=== PATIENT | female | born 1955 | race Caucasian/White ===

== ENCOUNTER → 2016-06-13 | Day surgery (SDC) | payer BC ==
--- NOTE | 2016-06-14 09:04 | MM ---
EXAMINATION TYPE: MG discontinued stereo core RT DATE OF EXAM: 06/13/2016 9:02 AM COMPARISON: 03/29/2016 as well as 04/13/2016 CLINICAL HISTORY: Abnormal mammogram TECHNIQUE: Stereotactic guided core biopsy of right breast. FINDINGS: The procedure of stereotactic guided core biopsy was explained to the patient. Benefits, a lternatives, and risks were discussed. An informed consent was then obtained. Multiple attempts were made at localizing the density in question within the right breast which prove d unsuccessful. Repeat 3-D mammogram of the right breast was obtained and the density in question tam ears to be less conspicuous. This was discussed with the patient and Dr. Richardson. Options include six-m onth follow-up or MRI of the bilateral breast with attention to the right breast. IMPRESSION: Discontinued stereotactic core biopsy right breast Recommendation: Recommendation is for MRI of the breasts with attention to the right breast. Jose lopez 6 month follow-up could also be obtained.
== END ==
LOC: RADMAMWWP 07:02
PROVIDERS: ATTEND Surgery
DX: R92.8 Other abnormal and inconclusive findings on diagnostic imaging of breast (principal); Z53.8 Procedure and treatment not carried out for other reasons

== ENCOUNTER → 2016-07-16 | Outpatient (CLI) | payer BC ==
[2016-07-16 17:59] LABS: Non-African American GFR(MDRD) >60 (>60 ml/min/1.73 sqM)
--- NOTE | 2016-07-19 14:59 | BMR ---
EXAMINATION TYPE: MR breast BILAT wo/w con DATE OF EXAM: 07/16/2016 9:23 PM COMPARISON: Prior mammogram dated 29 March 2016, 14 May 2014 HISTORY: Abnormal mammogram TECHNIQUE: A series of fat and water weighted images in the long and short axis views of both breasts are obtained in conjunction with dynamic contrast MRI with subtraction technique. The patient was i njected with 13 mL intravenous MultiHance gadolinium contrast. Three-dimensional and additional pos tprocessing imaging is created on independent workstation and reviewed during official interpretation of this study. FINDINGS: Scattered fibroglandular tissue is present within the bilateral breasts. There is no suspic ious mass like enhancement. No evident adenopathy. IMPRESSION: Left and right breast BI-RADS 1, negative, routine follow-up mammography back on schedule.
== END | disposition home or self-care (01) ==
LOC: RADMRIMAIN 17:20
PROVIDERS: ATTEND Surgery
DX: R92.8 Other abnormal and inconclusive findings on diagnostic imaging of breast (principal)
CPT/HCPCS: 82565; 77059; 0159T; A9577

== ENCOUNTER 2016-08-21 17:49 | Emergency (ER) | payer BC, OTHER ==
[2016-08-21] MEDS ORDERED: DIPH,PERTUS(ACELL)TETVAC-LF 0.5 ML VIAL IM ONE (18:08)
--- NOTE | 2016-08-21 18:13 | ED ---
Animal Bite HPI - General Stated Complaint: dog bite right hand-[facility] Time Seen by Provider: 08/21/16 18:05 Source: patient, RN notes reviewed Mode of arrival: ambulatory Limitations: no limitations - History of Present Illness Initial Comments: 61-year-old female presents emergency Department chief complaint dog bite to right hand. 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 Patient states dog is up-to- date vaccinations. Patient states she is unsure when her last tetanus was. Patient is right-hand dominant. Patient complains of laceration 2 cm in length to her right hand dorsal aspect. Patient denies any paresthesias denies any decreased range of motion. Patient offers no other complaints. - Related Data Previous Rx's Medication Instructions Recorded Amoxicillin/Potassium Clav 1 tab PO Q12HR #20 tab 08/21/16 [Augmentin 875-125 Tablet] Allergies Allergy/AdvReac Type Severity Reaction Status Date / Time No Known Allergies Allergy Verified 04/13/16 08:49 Review of Systems ROS Statement: Those systems with pertinent positive or pertinent negative responses have been documented in the HPI. ROS Other: All systems not noted in ROS Statement are negative. General Exam General appearance: alert, in no apparent distress Respiratory exam: Present: normal lung sounds bilaterally. Absent: respiratory distress, wheezes, rales, rhonchi, stridor Cardiovascular Exam: Present: regular rate, normal rhythm, normal heart sounds. Absent: systolic murmur, diastolic murmur, rubs, gallop, clicks Extremities exam: Present: other (Right hand there is a 2 cm laceration between the first and second digit on the dorsal aspect. There is no deep structure involvement patient has full strength and full range of motion of all digits neurovascular intact) Procedures - Laceration Laceration #1 Consent Obtained: verbal consent Indication: laceration Site: hand (Right) Size (cm): 2 Description: flap, irregular Depth: simple, single layer Anesthetic Used: lidocaine 1% Anesthesia Technique: local infiltration Amount (mls): 4 Pre-repair: wound explored, irrigated extensively, deep structures intact Type of Sutures: nylon Size of Sutures: 4-0 Number of Sutures: 5 Technique: simple, interrupted Patient Tolerated Procedure: well, no complications Disposition Clinical Impression: Dog bite Disposition: HOME SELF-CARE Condition: Stable Instructions: Animal Bite (ED) Additional Instructions: Please return to the Emergency Department if symptoms worsen or any other concerns. Wash the wound twice stated with soap and water. Have sutures removed in 10 days. Return to emergency department for any signs of infection which may include redness, swelling, drainage, fever, chills or any other concerns. Prescriptions: Amoxicillin/Potassium Clav [Augmentin 875-125 Tablet] 1 tab PO Q12HR #20 tab Referrals: Ian Bhat MD [Primary Care Provider] - 1-2 days Time of Disposition: 18:32
[2016-08-21 18:36] VITALS: RESP 18; TEMP 98
[2016-08-21 18:53] VITALS: BP 162/80; PULSE 80
== END 2016-08-21 18:49 | disposition home or self-care (01) ==
LOC: EC 17:49
DX: S61.451A Open bite of right hand, initial encounter (principal); Z23 Encounter for immunization; W54.0XXA Bitten by dog, initial encounter
CPT/HCPCS: 12001; 90471; 90715; 96360; 99283; 99284

== ENCOUNTER → 2016-12-12 | Outpatient (CLI) | payer BC ==
--- NOTE | 2016-12-12 10:59 | MM ---
Reason for exam: follow-up at short interval from prior study. Last mammogram was performed 8 months ago. History: Patient is postmenopausal. MG discontinued stereo core RT of the right breast, June 13, 2016. Took estrogen for 10 years beginning at age 39. Took progesterone for 10 years beginning at age 39. Physical Findings: Nurse did not find any significant physical abnormalities on exam. MG 3D Diag Mammo W/Cad RT CC and MLO view(s) were taken of the right breast. Prior study comparison: April 13, 2016, right breast MG work up mamm w CAD RT. March 29, 2016, bilateral MG screening mammo w CAD. There are scattered fibroglandular densities. There is no discrete abnormality including area of concern. No significant new findings when compared with previous films. These results were verbally communicated with the patient and result sheet given to the patient on 12/12/16. ASSESSMENT: Benign, BI-RAD 2 RECOMMENDATION: Follow-up diagnostic mammogram of both breasts in 6 months. Back on schedule.
== END | disposition home or self-care (01) ==
LOC: RADMAMWWP 09:39
PROVIDERS: ATTEND Surgery
DX: R92.8 Other abnormal and inconclusive findings on diagnostic imaging of breast (principal)
CPT/HCPCS: G0206; G0279

== ENCOUNTER → 2017-02-05 | Day surgery (SDC) | payer BC ==
[2017-01-31 16:02] VITALS: BMI 20.8
[~2017-02-05] MED LIST: SODIUM CHLORIDE 0.9% 1,000 ML IV SCH
[2017-02-05 08:51] VITALS: PULSE 60; RESP 18; TEMP 98.2
[2017-02-05 10:13] VITALS: BP 155/62
--- NOTE | 2017-02-05 14:00 | P.PCN ---
Preoperative Diagnosis: Twelve-lead ECG report Sinus mechanism heart rates 57 beats minute normal RI narrow QRS normal ST segments left axis deviation Tilt table test report Baseline blood pressure 125/63 mmHg Baseline heart rate 59 beats a minute patient was tilted upright at an angle of 70 per protocol there was an immediate drop in blood pressure 105/67 mmHg with an 80 stabilized and remained between 110-120 mmHgchange in heart rate no evidence for neurocardiogenic syncope Impression Mild orthostatic hypotension. Symptoms Anesthesia: none
== END ==
LOC: CATHEP 08:29
PROVIDERS: ATTEND Internal Medicine Clinical Cardiac Electrophysiology
DX: I95.1 Orthostatic hypotension (principal); R00.1 Bradycardia, unspecified; Z79.1 Long term (current) use of non-steroidal anti-inflammatories (NSAID); Z79.899 Other long term (current) drug therapy
CPT/HCPCS: 93005; 93660

== ENCOUNTER → 2017-09-12 | Outpatient (CLI) | payer BC ==
--- NOTE | 2017-09-13 07:17 | BD ---
EXAMINATION TYPE: MG DEXA axial skeleton. DATE OF EXAM: 09/12/2017 COMPARISON: NONE CLINICAL HISTORY: Height: 5 FT 5 1/2 IN Weight: 134 FRAX RISK QUESTIONS: Alcohol (3 or more units per day): NO Family History (Parent hip fracture): NO Glucocorticoids (More than 3mos): NO (Ex: prednisone, prednisolone, methylprednisolone, dexamethasone, and hydrocortisone). History of Fracture in Adulthood: NO Secondary Osteoporosis: 1. Type 1 Diabetes: NO 2. Hyperthyroidism: NO 3. Menopause before 45: YES 4. Malnutrition: NO 5. Chronic liver disease: NO Rheumatoid Arthritis: NO Current Tobacco Use: NO RISK FACTORS HISTORY OF: Surgery to Spine/Hip(right/left)/Wrist (right/left): LT HIP REPLACED When: 2017 Family History of Osteoporosis: YES Active: YES Postmenopausal woman: AGE 39 Take estrogen and/or progesterone medications: TOOK PREMPRO 40-50 How lon YEARS MEDICATIONS: Additional Medications: RESTASIS, Additional History: EXAM MEASUREMENTS: Bone mineral densitometry was performed using the [employer] System. Bone mineral density as measured about the Lumbar spine is: ----- L1-L4(G/cm2): 0.987 T Score Values are as follows: ----- L2: -2.2 ----- L3: -1.5 ----- L4: -1.9 ----- L1-L4: -1.6 BASELINE Bone mineral density about the R hip (g/cm2): 0.847 T Score values are as follows: -----R Neck: -1.4 -----R Total: -1.2 BASELINE IMPRESSION: Osteopenia (T Score between -2.5 and -1). There is slightly increased risk of fracture and the patient may be considered for treatment. Re-Screen 2-5 years. NOTE: T-SCORE=SD OF THE YOUNG ADULT MEAN.
--- NOTE | 2017-09-13 08:01 | MM ---
Reason for exam: additional evaluation requested from prior study. Last mammogram was performed 9 months ago. History: Patient is postmenopausal. MG discontinued stereo core RT of the right breast, June 13, 2016. Took estrogen for 10 years beginning at age 39. Took progesterone for 10 years beginning at age 39. Physical Findings: Nurse did not find any significant physical abnormalities on exam. MG 3D Diag Mammo W/Cad DAYSI Bilateral CC and MLO view(s) were taken. Prior study comparison: December 12, 2016, right breast MG 3d diag mammo w/cad RT. April 13, 2016, right breast MG work up mamm w CAD RT. The breast tissue is heterogeneously dense. This may lower the sensitivity of mammography. There is a stable left upper outer quadrant 3mm mass with calcifications, stable from prior exams. No suspicious abnormality. These results were verbally communicated with the patient and result sheet given to the patient on 09/12/17. ASSESSMENT: Benign, BI-RAD 2 RECOMMENDATION: Routine screening mammogram of both breasts in 1 year.
== END | disposition home or self-care (01) ==
LOC: RADMAMWWP 14:47
PROVIDERS: ATTEND Obstetrics & Gynecology
DX: R92.8 Other abnormal and inconclusive findings on diagnostic imaging of breast (principal); Z78.0 Asymptomatic menopausal state
CPT/HCPCS: 77080; 77066; G0279

== ENCOUNTER → 2018-09-15 | Outpatient (CLI) | payer BC ==
--- NOTE | 2018-09-16 13:32 | MM ---
Reason for exam: screening (asymptomatic). Last mammogram was performed 1 year ago. History: Patient is postmenopausal. MG discontinued stereo core RT of the right breast, June 13, 2016. Took estrogen for 10 years beginning at age 39. Took progesterone for 10 years beginning at age 39. Physical Findings: A clinical breast exam by your physician is recommended on an annual basis and results should be correlated with mammographic findings. MG 3D Screening Mammo W/Cad Bilateral CC and MLO view(s) were taken. Prior study comparison: September 12, 2017, bilateral MG 3d diag mammo w/cad DAYSI. December 12, 2016, right breast MG 3d diag mammo w/cad RT. There are scattered fibroglandular densities. There are similar appearing typically benign bilateral calcifications. No suspicious abnormality. No significant changes when compared with prior studies. ASSESSMENT: Benign, BI-RAD 2 RECOMMENDATION: Routine screening mammogram of both breasts in 1 year.
== END ==
LOC: RADMAMWWP 13:24
PROVIDERS: ATTEND Obstetrics & Gynecology
DX: Z12.31 Encounter for screening mammogram for malignant neoplasm of breast (principal)
CPT/HCPCS: 77063; 77067

== ENCOUNTER → 2020-04-01 | Outpatient (CLI) | payer MEDICARE ==
--- NOTE | 2020-04-04 09:33 | MM ---
Reason for exam: screening (asymptomatic). Last mammogram was performed 1 year and 6 months ago. History: Patient is postmenopausal. MG discontinued stereo core RT of the right breast, June 13, 2016. Took estrogen for 10 years beginning at age 39. Took progesterone for 10 years beginning at age 39. Physical Findings: A clinical breast exam by your physician is recommended on an annual basis and results should be correlated with mammographic findings. MG 3D Screening Mammo W/Cad Bilateral CC and MLO view(s) were taken. Prior study comparison: September 15, 2018, bilateral MG 3d screening mammo w/cad. September 12, 2017, bilateral MG 3d diag mammo w/cad DAYSI. There are scattered fibroglandular densities. Benign appearing bilateral calcifications. No significant changes when compared with prior studies. ASSESSMENT: Benign, BI-RAD 2 RECOMMENDATION: Routine screening mammogram of both breasts in 1 year.
== END | disposition home or self-care (01) ==
LOC: RADMAMWWP 08:15
PROVIDERS: ATTEND Internal Medicine
DX: Z12.31 Encounter for screening mammogram for malignant neoplasm of breast (principal)
CPT/HCPCS: 77063; 77067

== ENCOUNTER → 2021-04-10 | Outpatient (CLI) | payer MEDICARE ==
--- NOTE | 2021-04-11 12:43 | MM ---
Reason for exam: screening (asymptomatic). Last mammogram was performed 1 year ago. History: Patient is postmenopausal. MG discontinued stereo core RT of the right breast, June 13, 2016. Took estrogen for 10 years beginning at age 39. Took progesterone for 10 years beginning at age 39. Physical Findings: A clinical breast exam by your physician is recommended on an annual basis and results should be correlated with mammographic findings. MG 3D Screening Mammo W/Cad Bilateral CC and MLO view(s) were taken. Prior study comparison: April 01, 2020, bilateral MG 3d screening mammo w/cad. September 15, 2018, bilateral MG 3d screening mammo w/cad. The breast tissue is heterogeneously dense. This may lower the sensitivity of mammography. There is no discrete abnormality. No significant changes when compared with prior studies. ASSESSMENT: Negative, BI-RAD 1 RECOMMENDATION: Routine screening mammogram of both breasts in 1 year.
== END | disposition home or self-care (01) ==
LOC: RADMAMWWP 14:44
PROVIDERS: ATTEND Internal Medicine
DX: Z12.31 Encounter for screening mammogram for malignant neoplasm of breast (principal); Z78.0 Asymptomatic menopausal state
CPT/HCPCS: 77063; 77067

== ENCOUNTER 2021-06-25 00:53 | Emergency (ER) | payer MEDICARE ==
[2021-06-25 01:08] VITALS: BP 121/57; PULSE 61; RESP 16; TEMP 97.7
[2021-06-25] MEDS ORDERED: DIPH,PERTUS(ACELL)TETVAC-LF 0.5 ML VIAL IM ONE (01:18)
[2021-06-25] MEDS ORDERED: IBUPROFEN 600 MG TAB PO STA (01:18)
[2021-06-25] MEDS ORDERED: TOPICAL SKIN ADHESIVE 1 EACH AMP TOPICAL ONE (01:18)
--- NOTE | 2021-06-25 01:23 | ED ---
General Adult HPI - General Chief complaint: Fall Stated complaint: Fall, chin lac Time Seen by Provider: 06/25/21 01:08 Source: patient Mode of arrival: ambulatory - History of Present Illness Initial comments: 65 year-old female patient presents to the emergency department for evaluation of chin laceration. Patient states she tripped over a towel on the floor and fell hitting her chin on a china hutch. Denies losing consciousness. Denies any neck pain. Denies any pain or limitation in movement of the jaw. Denies use of blood thinners. Denies any other medications. Patient denies any headache, back pain, chest pain, shortness of breath, dizziness, weakness, abdominal pain, nausea, vomiting, or difficulties with bowel movements or urination. - Related Data Home Medications Medication Instructions Recorded Confirmed Glucosam/Michael-Msm1/C/Remi/Bosw 1 each PO DAILY 01/31/17 02/05/17 [Glucosamine-Chondroitin Tablet] cycloSPORINE [Restasis] 1 applicator BOTH EYES BID 01/31/17 02/05/17 Allergies Allergy/AdvReac Type Severity Reaction Status Date / Time No Known Allergies Allergy Verified 06/25/21 01:08 Review of Systems ROS Statement: Those systems with pertinent positive or pertinent negative responses have been documented in the HPI. ROS Other: All systems not noted in ROS Statement are negative. Past Medical History Past Medical History: Osteoarthritis (OA) Additional Past Medical History / Comment(s): see DR Kathleen H & P History of Any Multi-Drug Resistant Organisms: None Reported Past Surgical History: Cardiac Ablation, Joint Replacement, Orthopedic Surgery, Tonsillectomy Additional Past Surgical History / Comment(s): left hip replaced October 2016, knee arthroscopy Past Anesthesia/Blood Transfusion Reactions: No Reported Reaction Past Psychological History: No Psychological Hx Reported Smoking Status: Never smoker Past Alcohol Use History: Occasional Past Drug Use History: None Reported - Past Family History Mother Family Medical History: No Reported History General Exam General appearance: alert, in no apparent distress, other (This is a well- developed, well-nourished adult female in no acute distress.) ENT exam: Present: normal exam, normal oropharynx, mucous membranes moist, other (3cm chin laceration, no active bleeding, mild soft tissue swelling. Full ROM of the jaw without pain or limitation. ) Neck exam: Present: normal inspection, full ROM, other (Nontender, no step-off, no deformity to firm midline palpation of the posterior cervical spine. Full range of motion without pain or limitation.). Absent: tenderness, meningismus, lymphadenopathy Respiratory exam: Present: normal lung sounds bilaterally. Absent: respiratory distress, wheezes, rales, rhonchi, stridor Cardiovascular Exam: Present: regular rate, normal rhythm, normal heart sounds. Absent: systolic murmur, diastolic murmur, rubs, gallop, clicks Back exam: Present: normal inspection. Absent: vertebral tenderness Neurological exam: Present: alert, oriented X3, CN II-XII intact Psychiatric exam: Present: normal affect, normal mood Skin exam: Present: warm, dry, intact, normal color. Absent: rash Course Vital Signs 06/25/21 01:02 Temperature 97.7 F Pulse Rate 61 Respiratory 16 Rate Blood Pressure 121/57 O2 Sat by Pulse 96 Oximetry Procedures - Laceration Laceration #1 Consent Obtained: verbal consent Indication: laceration Site: other (chin) Size (cm): 3 Description: linear Depth: simple, single layer Pre-repair: irrigated extensively Size of Sutures: other (exofin skin adhesive) Patient Tolerated Procedure: well, no complications Medical Decision Making - Medical Decision Making 65 year-old female patient presents for evaluation of laceration to the chin. Physical examination revealed 3cm laceration without bleeding. She had no jaw pain or neck pain. No headache or LOC. Chin was repaired with skin adhesive. She was given tetanus vaccine. She'll be discharged to follow up with the primary care physician for recheck in 1-2 days. Return parameters were discussed in detail. She verbalizes understanding and agrees with this plan. My attending is Dr. Potts. Disposition Clinical Impression: Chin laceration Disposition: HOME SELF-CARE Condition: Good Instructions (If sedation given, give patient instructions): Laceration (ED), Skin Adhesive Care (ED) Additional Instructions: Avoid applying any oils or oil based ointment over the skin glue. Avoid excessive stretching or tension over the area. Follow up with your primary care physician for recheck in 1-2 days. Return for any new, worsening, or concerning symptoms. Is patient prescribed a controlled substance at d/c from ED?: No Referrals: José Antonio Zafar MD [Primary Care Provider] - 1-2 days Time of Disposition: 01:54
== END 2021-06-25 02:08 | disposition home or self-care (01) ==
LOC: EC 00:53
DX: S01.81XA Laceration without foreign body of other part of head, initial encounter (principal); M19.90 Unspecified osteoarthritis, unspecified site; Z79.899 Other long term (current) drug therapy; W01.0XXA Fall on same level from slipping, tripping and stumbling without subsequent striking against object, initial encounter
CPT/HCPCS: 12013; 90471; 90715; 99283

== ENCOUNTER → 2022-04-26 | Outpatient (CLI) | payer MEDICARE ==
--- NOTE | 2022-04-26 17:46 | BD ---
EXAMINATION TYPE: Axial Bone Density DATE OF EXAM: 04/26/2022 CLINICAL HISTORY: 66 year old Female. ICD-10 CODE: Z78.0 ASYMPTOMATIC MENOPAUSAL STATE Height: 65.5 Weight: 137.2 FRAX RISK QUESTIONS: Alcohol (3 or more units per day): no Family History (Parent hip fracture): no Glucocorticoids (More than 3mos): no (Ex: prednisone, prednisolone, methylprednisolone, dexamethasone, and hydrocortisone). History of Fracture in Adulthood: no Secondary Osteoporosis: 1. Type 1 Diabetes: no 2. Hyperthyroidism: no 3. Menopause before 45: yes 4. Malnutrition: no 5. Chronic liver disease: no Rheumatoid Arthritis: no Current Tobacco Use: no RISK FACTORS HISTORY OF: Surgery to Spine/Hip(right/left)/Wrist (right/left): left hip When: 2017 Family History of Osteoporosis: yes Active: yes Diet low in dairy products/other sources of calcium: yes Postmenopausal woman: yes Lost more than 2 inches in height since high school: no MEDICATIONS: Additional History: EXAM MEASUREMENTS: Bone mineral densitometry was performed using the [employer] System. Bone mineral density as measured about the Lumbar spine is: ----- L1-L4(G/cm2): 0.973 T Score Values are as follows: ----- L1: -1.6 ----- L2: -2.7 ----- L3: -1.6 ----- L4: -1.4 ----- L1-L4: -1.7 Bone mineral density has: decreased -0.1 % since study of: 09.12.2017 Bone mineral density about the R hip (g/cm2): 0.821 T Score values are as follows: -----R Neck: -1.6 -----R Total: -1.2 Bone mineral density has: increased 1.2 % since study of: 2018 FRAX%s: The graph provided illustrates a 9.1% chance for a major osteoporotic fx and a 1.2% chance fo r the hips probability for fx in 10 years time. IMPRESSION: Osteopenia (T Score between -2.5 and -1). There is slightly increased risk of fracture and the patient may be considered for treatment. Re-Screen 2-5 years. NOTE: T-SCORE=SD OF THE YOUNG ADULT MEAN.
--- NOTE | 2022-04-27 08:28 | MM ---
Reason for Exam: Screening (asymptomatic). Last mammogram was performed 1 year(s) and 1 month(s) ago. Patient History: Menarche at age 13. First Full-Term at age 19. Postmenopausal. Patient has history of breast feeding. Estrogen for 10 years from age 39 until age 49. Progesterone for 10 years from age 39 until age 49. 06/13/2016, MG discontinued stereo core RT on the right side. Risk Values: Kasie 5 year model risk: 1.4%. NCI Lifetime model risk: 4.8%. Prior Study Comparison: 09/15/2018 Bilateral Screening Mammogram, [facility]. 04/01/2020 Bilateral Screening Mammogram, [facility]. 04/10/2021 Bilateral Screening Mammogram, [facility]. Tissue Density: The breast tissue is heterogeneously dense. This may lower the sensitivity of mammography. Findings: Analyzed By CAD. There is no suspicious group of microcalcifications or new suspicious mass in either breast. Benign calcifications within both breasts. No significant change from prior exams. Overall Assessment: Benign, BI-RAD 2 Management: Screening Mammogram of both breasts in 1 year. A clinical breast exam by your physician is recommended on an annual basis and results should be correlated with mammographic findings. Electronically signed and approved by: Boby Wood D.O.
== END | disposition home or self-care (01) ==
LOC: RADMAMWWP 13:35
PROVIDERS: ATTEND Obstetrics & Gynecology
DX: Z12.31 Encounter for screening mammogram for malignant neoplasm of breast (principal); M85.89 Other specified disorders of bone density and structure, multiple sites; Z78.0 Asymptomatic menopausal state
CPT/HCPCS: 77063; 77067; 77080

== ENCOUNTER → 2022-11-26 | Outpatient (CLI) | payer MEDICARE ==
[2022-11-26 16:15] LABS: ALT 34 U/L (8-44); AST 24 U/L (13-35); Chol/HDL Ratio 1.75 Ratio; LDL Cholesterol,Calculated 50.6 mg/dL (0.0-131.0)
== END | disposition home or self-care (01) ==
LOC: LABWHC1 08:04
PROVIDERS: ATTEND Internal Medicine Interventional Cardiology
DX: E78.2 Mixed hyperlipidemia (principal)
CPT/HCPCS: 36415; 80061; 84450; 84460

== ENCOUNTER → 2023-05-27 | Outpatient (CLI) | payer MEDICARE ==
--- NOTE | 2023-05-28 18:41 | MM ---
Reason for Exam: Screening (asymptomatic). Last mammogram was performed 1 year(s) and 1 month(s) ago. Patient History: Menarche at age 13. First Full-Term at age 19. Postmenopausal. Patient has history of breast feeding. Estrogen for 10 years from age 39 until age 49. Progesterone for 10 years from age 39 until age 49. 06/13/2016, MG discontinued stereo core RT on the right side. Risk Values: Kasie 5 year model risk: 1.4%. NCI Lifetime model risk: 4.6%. Prior Study Comparison: 04/01/2020 Bilateral Screening Mammogram, [facility]. 04/10/2021 Bilateral Screening Mammogram, [facility]. 04/26/2022 Bilateral MG 3D screening mammo w/cad, [facility]. Tissue Density: There are scattered fibroglandular densities. Findings: Analyzed By CAD. Pattern appears symmetrical and stable. No significant interval change is evident. 9 calcifications present bilaterally. No suspicious groups of microcalcifications, spiculated or lobular masses, architectural distortion or other secondary signs of malignancy are mammographically apparent. Overall Assessment: Benign, BI-RAD 2 Management: Screening Mammogram of both breasts in 1 year. A negative mammogram report should not preclude additional follow up of suspicious palpable abnormalities. Patient should continue monthly self breast exam. A clinical breast exam by your physician is recommended on an annual basis and results should be correlated with mammographic findings. Electronically signed and approved by: Jorge Weiss D.O. Radiologis
== END | disposition home or self-care (01) ==
LOC: RADMAMWWP 16:08
PROVIDERS: ATTEND Internal Medicine
DX: Z12.31 Encounter for screening mammogram for malignant neoplasm of breast (principal); Z78.0 Asymptomatic menopausal state
CPT/HCPCS: 77063; 77067

== ENCOUNTER → 2024-06-04 | Outpatient (CLI) | payer MEDICARE ==
--- NOTE | 2024-06-04 15:29 | MM ---
Reason for Exam: Screening (asymptomatic). Last screening mammogram was performed 12 month(s) ago. Patient History: Menarche at age 13. First Full-Term at age 19. Postmenopausal. Patient has history of breast feeding. Estrogen for 10 years from age 39 until age 49. Progesterone for 10 years from age 39 until age 49. 06/13/2016, MG discontinued stereo core RT on the right side. Risk Values: Kasie 5 year model risk: 1.4%. NCI Lifetime model risk: 4.3%. Prior Study Comparison: 04/10/2021 Bilateral Screening Mammogram, [facility]. 04/26/2022 Bilateral MG 3D screening mammo w/cad, [facility]. 05/27/2023 Bilateral MG 3D screening mammo w/cad, [facility]. Tissue Density: There are scattered areas of fibroglandular density. Findings: Analyzed By CAD. There are a few scattered and loosely grouped tiny benign-appearing round and linear calcifications bilaterally redemonstrated. There is no suspicious group of microcalcifications or new suspicious mass in either breast. Overall Assessment: Benign, BI-RAD 2 Management: Screening Mammogram of both breasts in 1 year. . Patient should continue monthly self-breast exams. A clinical breast exam by your physician is recommended on an annual basis. This exam should not preclude additional follow-up of suspicious palpable abnormalities. Note on Kasie scores and lifetime risk: 1. A Kasie score greater than 3% is considered moderate risk. If this is the case, consider specialist referral to assess eligibility for a risk reducing agent. 2. If overall lifetime risk for the development of breast cancer is 20% or higher, the patient may qualify for future screening with alternating mammogram and breast MRI. [facility], , 06/04/2024 3:25 PM. Electronically signed and approved by: Liban Strauss M.D.
--- NOTE | 2024-06-04 15:32 | BD ---
EXAMINATION TYPE: Axial Bone Density DATE OF EXAM: 06/04/2024 CLINICAL HISTORY: 68 years old Female. ICD-10 CODE: Z13.820 MENOPAUSAL , Additional History: Height: 5 ft 4 1/2 in Weight: 142 FRAX RISK QUESTIONS: Alcohol (3 or more units per day): no Family History (Parent hip fracture): no Glucocorticoids (More than 3mos): no (Ex: prednisone, prednisolone, methylprednisolone, dexamethasone, and hydrocortisone). History of Fracture in Adulthood: no Secondary Osteoporosis: 1. Type 1 Diabetes: no 2. Hyperthyroidism: no 3. Menopause before 45: yes 4. Malnutrition: no 5. Chronic liver disease: no Rheumatoid Arthritis: no Current Tobacco Use: no RISK FACTORS HISTORY OF: Surgery to Spine/Hip(right/left)/Wrist (right/left): left hip replacement When: 2017 MEDICATIONS: Thyroid Medications: none Osteoporosis Medications: none EXAM MEASUREMENTS: Bone mineral densitometry was performed using the [employer] System. Bone mineral density as measured about the Lumbar spine is: ----- L1-L4(G/cm2): 0.981 T Score Values are as follows: ----- L1: -1.4 ----- L2: -2.6 ----- L3: -1.4 ----- L4: -1.5 ----- L1-L4: -1.7 Z Score Values are as follows: ----- L1: 0.3 ----- L2: -0.9 ----- L3: 0.3 ----- L4: 0.2 ----- L1-L4: -0.3 Bone mineral density has: increased 0.8 % since study of: 2021 Bone mineral density about the R hip (g/cm2): 0.843 T Score values are as follows: -----R Neck: -1.4 -----R Total: -1.2 Z Score values are as follows: -----R Neck: 0.3 -----R Total: 0.3 Bone mineral density has: no change % since study of: 2021 FRAX%s: The graph provided illustrates a 9.5 % chance for a major osteoporotic fx and a 1.3 % chance for the hips probability for fx in 10 years time. IMPRESSION: Osteopenia (T Score between -2.5 and -1) remains present. There is slightly increased risk of fracture and the patient may be considered for treatment. Re-Screen 2-5 years. NOTE: T-SCORE=SD OF THE YOUNG ADULT MEAN. [facility], , 06/04/2024 3:29 PM
== END | disposition home or self-care (01) ==
LOC: RADMAMWWP 14:18
PROVIDERS: ATTEND Internal Medicine
DX: Z12.31 Encounter for screening mammogram for malignant neoplasm of breast (principal); R92.323 Mammographic fibroglandular density, bilateral breasts; M85.89 Other specified disorders of bone density and structure, multiple sites; Z78.0 Asymptomatic menopausal state
CPT/HCPCS: 77063; 77067; 77080

== ENCOUNTER → 2024-10-02 | Outpatient (CLI) | payer MEDICARE ==
--- NOTE | 2024-10-02 14:33 | CT ---
EXAMINATION TYPE: CT brain wo con CT DLP: 1090.40 mGycm, Automated exposure control for dose reduction was used. DATE OF EXAM: 10/02/2024 2:27 PM COMPARISON: None. CLINICAL INDICATION:Female, 69 years old with history of G45.9 TRANSIENT CEREBRAL ISCHEMIC ATTACK, UN SPECIF, TRANSIENT AMNESIA EPISODE X FEW DAYS AGO TECHNIQUE: Brain: Multiple axial CT images of the brain were obtained without IV contrast. . Coronal and sagitta l reformats reviewed. FINDINGS: Brain: Extra-axial spaces: No abnormal extra-axial fluid collections. Ventricular system: Within normal limits Cerebral parenchyma: Age-appropriate mild cerebral atrophy. No acute intraparenchymal hemorrhage or m ass effect. The parikh-white junction is well differentiated. Patchy and confluent hypoattenuating are as are seen within the periventricular subcortical white matter. Most prominent within the bilateral parietal lobes. Cerebellum: Unremarkable. Mass effect: No evidence of midline shift. Intracranial vasculature: unremarkable Soft tissues: Normal. Calvarium/osseous structures: No depressed skull fracture. Paranasal sinuses and mastoid air cells: The mastoid air cells are clear. Minimal mucosal thickening of the right maxillary sinus. The remaining paranasal sinuses are clear. Visualized orbits: Orbital contents are intact. IMPRESSION: 1. No acute intracranial process. 2. Nonspecific moderate white matter changes, likely secondary to chronic small vessel ischemic disea se. [facility], , 10/02/2024 2:31 PM
== END | disposition home or self-care (01) ==
LOC: RADCTMAIN 14:02
PROVIDERS: ATTEND Internal Medicine
DX: G45.9 Transient cerebral ischemic attack, unspecified (principal); R90.82 White matter disease, unspecified
CPT/HCPCS: 70450